=== PATIENT | female | born 1990 ===

== ENCOUNTER 2022-05-18 10:00 | Outpatient (RCR) | payer BC, SELFPAY ==
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
[2022-05-06 10:27] VITALS: BMI 57.2
[2022-05-06 10:28] VITALS: BP 138/88; PULSE 80; TEMP 37
--- NOTE | 2022-05-06 13:25 | PC.ADMIT ---
Patient is a 31 year old female who has a dx of Bipolar II disorder. According to Intergrative Assessment she was referred to PHP by her PCP d/t increased depression sxs and disordered eating. Patient reportedly had one SA via overdose on medication which she stockpiled. Patient reportedly did not receive medical attention or admission to inpatient level of care. 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 Patient stated she compares herself with how she used to be before and this makes her feel depressed. Also contributing to her depression is the loss of her father in 2019 and body image issues. Reports decrease in ADLS including stop of use of her CPAP machine. Patient also noted an increase in Marijuana use staring in 2017 and currently using a few bowls a day. Patient reports she is quitting use starting today. Gave her information on what to expect regarding possible withdrawal sxs and education given to patient on Marijuana use in regards to mental health and physical health both verbal and written information. Usha is alert and oriented x4. Calm and cooperative. Reports passive SI with no plan or intent to harm herself. Patient given a copy of her safety plan if needed. Medications reconciled with patient and patient's pharmacy. Patient reports she is pre-diabetic, sleep apnea, IBSD, and struggles with multiple eating disorder sxs. Patient reports history of going to [place] eating disorder program. I asked her if she would be interested in seeing a room service bellhop and she stated she is interested in doing this at this time for her health and wanted support in setting up an appointment. I supported her in calling [facility] and she left a message for them to call her back to set up an appointment. ( I called [facility] earlier to get more information including insurance they take and wait times). Patient awaiting a call back for an appointment.
--- NOTE | 2022-05-08 07:56 | HO.PHP ---
The clients case was discussed and opened in treatment team
--- NOTE | 2022-05-18 09:48 | P.PNPSP_ITS ---
Subjective Subjective Date of Service: 05/18/22 Reason For Visit: bipolar II Medical Problems Affecting Mental Status: No Interim History: Reports doing well. Denies depression, states she feels much improved. Denies any mood lability. No SI, no safety concerns. Taking medications as prescribed. Finding increased Wellbutrin dose helpful. Feels stable for discharge from [facility] at this time, plans to return to work. Wants to pursue evening eating disorder support group, through [place]. Medication Compliance: Yes Side effects from medications: No Attending Groups: Yes Review of Systems Acute medical concerns: No Medical Review of Systems: unchanged Review of Systems Review of Systems Yes all other systems are reviewed and are negative Constitutional: Reports no additional constitutional complaints Mental Status Exam Mental Status Exam Narrative: NAD Bright mood/affect Patient Appearance: Well Grooomed Patient Orientation: Person, Place, Time and Situation Level of Consciousness: Appropriate Patient Behavior: Appropriate, Cooperative and Good Eye Contact Mood Description: Happy Affect Description: Happy and Appropriate Patient Cognition Impaired: No Ability to Follow Directions: Excellent Speech Pattern: Clear, Appropriate and Spontaneous Speech Memory Description: Intact Hallucinations: None Delusions: Not Present Thought Process: Intact Thought Content: positive for Intact Judgement: Good Diagnostics Vital Signs (24Hr): BMI result Body Mass Index 57.2 Assessment & Plan Assessment & Plan (1) Bipolar 2 disorder, major depressive episode: Status: Acute Code(s): F31.81 - Bipolar II disorder Assessment and Plan: Reports doing well. Was able to clean her home yesterday, as depression has been lifting. Denies depression, states she feels much improved. Sleeping 8 hours per night, feels rested. No SI, no safety concerns. No AH/VH. Taking medications as prescribed. Finding increased Wellbutrin dose helpful. Feels stable for discharge from [facility] at this time, plans to return to work. (2) Eating disorder: Status: Acute Code(s): F50.9 - Eating disorder, unspecified Assessment and Plan: Has participated in programs through [facility] in past, and used to attend a support group there. Plans to reconnect, begin attending support group with them again. Plan 1. patient appears stable for discharge from [facility] at this time. 2. Patient to follow-up with outpatient providers gong forward. Patient educated on: diagnosis, medication risk/benefits and therapeutic strategies Informed Consent: understands Reason for contiued partial hosp. stay Substantial Risk for: stable for discharge Certification I certify that partial hospital treatment is medically necessary due to the symptoms and problems resulting from the patient's mental illness and the failure to treat the patient at the partial hospital level of care would likely result in the patient requiring inpatient psychiatric care which could not be prevented at a less intensive level of care. Total time managing care of this patient today ___20_ minutes. Discharge Plan Discharge Attending provider: Jesse Marley Medications: No Action escitalopram oxalate 10 mg tablet 1 tab PO DAILY bupropion HCl 300 mg tablet extended release 24 hr 1 tab PO DAILY Vraylar 3 mg capsule 1 cap PO DAILY Stand Alone Forms: Patient Portal Discharge page Patient Education: Depression (DC)
--- NOTE | 2022-05-18 14:25 | HO.PHP ---
The client called and said it was too difficult coming to the program because of health issues. She asked to be discharged and will be exploring eating disorder programs.
== END 2022-05-18 23:59 | disposition home or self-care (01) ==
LOC: HO.PHPA 10:00
PROVIDERS: Visit Provider Psychiatry & Neurology Psychiatry
DX: F31.81 Bipolar II disorder (principal); F50.9 Eating disorder, unspecified; Z79.899 Other long term (current) drug therapy
CPT/HCPCS: 90791; 90853